=== PATIENT | male | born 1995 | race Caucasian/White ===

== ENCOUNTER 2019-02-18 00:19 | Emergency (ER) | payer OTHER ==
[~2019-02-18] VITALS: Ht 170.2 cm; Wt 84.1 kg
[2019-02-18 00:27] VITALS: Ht 170.2 cm; Wt 84.1 kg
[2019-02-18] MEDS ORDERED: BUPROPION HCL100 MG PO (00:29)
[2019-02-18] MEDS ORDERED: BUSPAR10 MG PO (00:29)
[2019-02-18] MEDS ORDERED: VOLTAREN75 MG PO (01:13)
[2019-02-18 01:28] VITALS: BP 125/74
== END 2019-02-18 01:31 | disposition home or self-care (01) ==
LOC: D.ER 00:19
DX: M75.52 Bursitis of left shoulder (principal)